=== PATIENT | female | born 1970 | race Caucasian/White ===

== ENCOUNTER 2019-08-19 08:06 | Outpatient (CLI) | payer BC, SELFPAY ==
--- NOTE | 2019-08-19 09:41 | CT_ITS ---
WS: [id number] CT ABDOMEN AND PELVIS WITH CONTRAST HISTORY: ADENOCARCINOMA OF SIGMOID COLON TECHNIQUE: Imaging performed of the abdomen and pelvis with IV contrast. Single phase imaging of the abdomen. Coronal and sagittal reformats are submitted. All CT scans at [facility] use at least one of these dose optimization techniques: automated exposure control; mA and/or kV adjustment per patient size (includes targeted exams where dose is matched to clinical indication); or iterativ e reconstruction. IV CONTRAST: Omnipaque 300; 95 mL IV. Oral contrast: Yes. DLP: 1110.39 mGycm COMPARISON: None available. Lower thorax: Lung bases are clear. Heart is normal size. No hiatal hernia. Liver/biliary system: Mild hepatic steatosis and hepatomegaly. No metastatic lesions or bile duct dil atation. Gallbladder: Numerous stones in the gallbladder. No pericholecystic fluid or gallbladder wall thicken ing. Pancreas: Normal. Spleen: Normal. Adrenal glands: Normal. Right kidney: Normal. Left kidney: Normal. Aorta: Normal. Lymphadenopathy: None. Free fluid: None. GI tract: Appendix is normal. There are numerous diverticula scattered in the descending and sigmoid colon. By history patient has a sigmoid neoplasm. There some mild wall thickening involving the mid t o distal sigmoid but no discrete neoplasm is seen by CT that was described on sigmoid osteopenia. Abdominal wall: Umbilical hernia with no herniated bowel loop. Pelvis: Normal. Bones: Unremarkable. CT/CT abdomen pelvis w con* [id number] IMPRESSION: 1. Descending colon sigmoid diverticulosis. 2. There is mild wall thickening in the mid to distal sigmoid. A discrete iden tifiable mass that was visualized by recent colonoscopy is not apparent by CT. 3. No adenopathy or ascites. 4. Normal adrenal glands. 5. Hepatic steatosis and hepatomegaly. 6. Cholelithiasis.
[2019-08-19] MEDS: iohexol 300 mg/mL 50 mL Btl PO (09:43)
[2019-08-19] MEDS: iohexol 300 mg/mL 100 mL Btl IV (10:04)
== END 2019-08-19 08:07 | disposition home or self-care (01) ==
LOC: RADWPI 08:12
PROVIDERS: PCP Family Medicine; Visit Provider Family Medicine
DX: C18.7 Malignant neoplasm of sigmoid colon (principal); K57.30 Diverticulosis of large intestine without perforation or abscess without bleeding; K76.0 Fatty (change of) liver, not elsewhere classified; R16.0 Hepatomegaly, not elsewhere classified; K80.20 Calculus of gallbladder without cholecystitis without obstruction
CPT/HCPCS: 74177; Q9967

== ENCOUNTER 2020-02-09 08:06 | Outpatient (CLI) | payer BC, SELFPAY ==
--- NOTE | 2020-02-09 08:12 | MM_ITS ---
WS: [id number] BILATERAL DIGITAL SCREENING MAMMOGRAPHY WITH CAD CLINICAL INFORMATION: SCREENING HISTORY: Screening mammogram. No current complaints. COMPARISON: None. TECHNIQUE: Bilateral CC and MLO views. FINDINGS: The breasts are composed of heterogeneous fibroglandular density tissue, which can limit the detectio n of small underlying mass lesions. No suspicious mass, asymmetry, calcifications, or architectural d istortion. No evidence of malignancy. Vascular calcification. A few incidental intramammary lymph nod es. MM/[id number] IMPRESSION: BI-RADS: 2-Benign FOLLOW UP: 1 Year Follow-up Recommend return to annual screening mammography.
== END 2020-02-09 08:07 | disposition home or self-care (01) ==
LOC: RADSHAW 08:10
PROVIDERS: PCP Family Medicine; Visit Provider Family Medicine
DX: Z12.31 Encounter for screening mammogram for malignant neoplasm of breast (principal)
CPT/HCPCS: 77067

== ENCOUNTER 2020-03-30 14:00 | Emergency (ER) | payer BC, SELFPAY ==
[2020-03-30 14:09] VITALS: BP 154/82; PULSE 126; RESP 26; TEMP 37.6; O2SAT 93; BMI 45.4
--- NOTE | 2020-03-30 14:25 | XR_ITS ---
WS: [id number] XR chest 1V portable [id number] REASON FOR EXAM: dyspnea/cough FINDINGS: Patchy airspace and interstitial infiltrative changes in both lower lungs. Normal heart and mediastinum. Moderate degenerative spondylosis in the lower thoracic spine. XR/XR chest 1V portable [id number] IMPRESSION: Bilateral lower lung opacities likely representing acute/subacute pneumonitis.
[2020-03-30 15:21] LABS: D Dimer 1.05 ug/mIFEU (0-0.59)
[2020-03-30 15:22] LABS: Alanine Aminotransferase 42 U/L (0-33); Albumin Level 3.9 g/dL (3.5-5.2); Alkaline Phosphatase 88 IU/L (35-105); Anion Gap 16.1 (5-19); Aspartate Amino Transferase 48 U/L (0-32); Blood Urea Nitrogen 14 mg/dL (6-20); Calcium 8.7 mg/dL (8.5-10.5); Carbon Dioxide 22 mmol/L (22-29); Chloride 97 mmol/L (98-107); Globulin 4.1 g/dL (1.3-4.6); Glomerular Filtration Rate 76.6 mL/min (90-130); Glucose 116 mg/dL (65-115); Osmolality Calculated 273 mOsm/kg (285-295); Potassium 4.1 mmol/L (3.5-5.1); Sodium 131 mmol/L (136-145); Total Bilirubin 0.7 mg/dL (0.15-1.2)
--- NOTE | 2020-03-30 15:29 | W.ED.SOB ---
HPI - SOB/Dyspnea General: Chief Complaint: Shortness of Breath/Dyspnea Stated Complaint: sob Time Seen by Provider: 03/30/20 14:24 History of Present Illness: HPI Narrative: 49-year-old female presents emergency room complaining of shortness of breath. Week ago she was seen as an outpatient and treated for sinusitis. Yesterday she was at her doctor's office and they had a send out PCR Covid test done result is not yet available we called [facility] and they do not have that back yet. She had a little bit of flank pain on the left as well but denies dysuria urgency or frequency she is more shortness of breath short of breath today and has been having some diarrhea as well. MD elicited complaint: shortness of breath and cough Onset (ago): day(s) Context: recent illness Timing: constant Severity: moderate Exacerbating factors: exertion and coughing Relieving factors: rest Associated symptoms: Reports chest congestion and cough; Deny abdominal pain, chest pain, diaphoresis, dizziness, extremity pain, fever(s), hemoptysis, lightheadedness, myalgias, nausea, orthopnea, palpitations, paresthesias, polydipsia, polyuria, rash, sense of impending doom, syncope or vomiting Treatment prior to arrival: none Review of Systems Const: Denies: fever(s) or diaphoresis ENMT: Denies: throat pain, ear or mastoid pain, nasal discharge or nasal congestion Card: Denies: chest pain, palpitations, lightheadedness, syncope or orthopnea Resp: Reports: chest congestion; Denies: hemoptysis GI: Denies: abdominal pain, nausea or vomiting : Denies: flank pain, difficulty voiding, dysuria, urinary frequency or urinary urgency Musc: Denies: extremity pain Skin/Breast: Denies: rash or pruritus Neuro: Denies: dizziness Endo: Denies: polyuria or polydipsia Physical Exam Const: COMMON NORMALS: no acute distress GENERAL APPEARANCE: cooperative and comfortable ORIENTATION/CONSCIOUSNESS: Yes awake, Yes oriented to person, Yes oriented to place and Yes oriented to time HENMT: COMMON NORMALS: normocephalic, atraumatic and hearing grossly normal bilaterally HEAD & SCALP: normocephalic and atraumatic Neck/C-Spine: COMMON NORMALS: no JVD Resp: COMMON NORMALS: normal respiratory effort, No retractions and No use of accessory muscles AUSCULTATION: rales and wheezes Cardio: COMMON NORMALS: no JVD, regular rate, regular rhythm and No murmurs present (Cardio) RATE: regular rate RHYTHM: regular rhythm GI: COMMON NORMALS: Soft to palpation and No hepatosplenomegaly present AUSCULTATION: Yes normoactive bowel sounds PALPATION: Yes Soft to palpation, No Tenderness to palpation present (GI), No Guarding due to palpation present (GI) and Yes No hepatosplenomegaly present Extremity: COMMON NORMALS: normal to inspection, capillary refill normal, no clubbing, cyanosis or edema, no calf tenderness and no pedal edema Neuro: SENSORIUM/ORIENTATION: Yes oriented to person, Yes oriented to place and Yes oriented to time Skin: COMMON NORMALS: no rashes or lesions noted GENERAL SKIN EXAM: no rashes or lesions noted Course Vital Signs: Vital signs: Vital Signs Temperature 99.6 F 03/30/20 14:09 Pulse Rate 126 H 03/30/20 14:09 Respiratory Rate 26 H 03/30/20 14:09 Blood Pressure 154/82 03/30/20 14:09 Pulse Oximetry 91 03/30/20 18:02 MDM - SOB/Dyspnea MDM Narrative: Medical decision making narrative: Reviewing her labs and her imaging most likely she does have Covid she is doing well on supplemental oxygen we will discharge her home with oxygen and oxygen sat monitor follow-up tomorrow pending the results of her PCR testing. This testing was done to [facility] was not repeated here. Lab Data: Labs: Lab Results 03/30/20 03/30/20 03/30/20 Range/Units 14:53 14:53 14:53 WBC Cancelled Corrected WBC Cancelled RBC Cancelled Hgb Cancelled Hct Cancelled MCV Cancelled MCH Cancelled MCHC Cancelled RDW Cancelled Plt Count Cancelled MPV Cancelled Gran % Cancelled Neut % (Auto) Cancelled Lymph % (Auto) Cancelled Wetzel % (Auto) Cancelled Eos % (Auto) Cancelled Baso % (Auto) Cancelled Neut # (Auto) Cancelled Lymph # (Auto) Cancelled Wetzel # (Auto) Cancelled Eos # (Auto) Cancelled Baso # (Auto) Cancelled Absolute Gran (aut o) Cancelled Nucleated RBC % (a uto) Cancelled Nucleated RBCs # Cancelled D-Dimer 1.05 H (0-0.59) ug/mIFE U Sodium 131 L (136-145) mmol/L Potassium 4.1 (3.5-5.1) mmol/L Chloride 97 L (98-107) mmol/L Carbon Dioxide 22 (22-29) mmol/L Anion Gap 16.1 (5-19) BUN 14 (6-20) mg/dL Creatinine 0.8 (0.5-0.9) mg/dL GFR Calculation 76.6 L (90-130) mL/min Glucose 116 H (65-115) mg/dL Calculated Osmolal ity 273 L (285-295) mOsm/k g Calcium 8.7 (8.5-10.5) mg/dL Total Bilirubin 0.7 (0.15-1.2) mg/dL AST 48 H (0-32) U/L ALT 42 H (0-33) U/L Alkaline Phosphata se 88 (35-105) IU/L Total Protein 8.0 (6.6-8.7) g/dL Albumin 3.9 (3.5-5.2) g/dL Globulin 4.1 (1.3-4.6) g/dL 03/30/20 Range/Units 16:51 WBC Cancelled Corrected WBC Cancelled RBC Cancelled Hgb Cancelled Hct Cancelled MCV Cancelled MCH Cancelled MCHC Cancelled RDW Cancelled Plt Count Cancelled MPV Cancelled Gran % Cancelled Neut % (Auto) Cancelled Lymph % (Auto) Cancelled Wetzel % (Auto) Cancelled Eos % (Auto) Cancelled Baso % (Auto) Cancelled Neut # (Auto) Cancelled Lymph # (Auto) Cancelled Wetzel # (Auto) Cancelled Eos # (Auto) Cancelled Baso # (Auto) Cancelled Absolute Gran (aut o) Cancelled Nucleated RBC % (a uto) Cancelled Nucleated RBCs # Cancelled D-Dimer (0-0.59) ug/mIFE U Sodium (136-145) mmol/L Potassium (3.5-5.1) mmol/L Chloride (98-107) mmol/L Carbon Dioxide (22-29) mmol/L Anion Gap (5-19) BUN (6-20) mg/dL Creatinine (0.5-0.9) mg/dL GFR Calculation (90-130) mL/min Glucose (65-115) mg/dL Calculated Osmolal ity (285-295) mOsm/k g Calcium (8.5-10.5) mg/dL Total Bilirubin (0.15-1.2) mg/dL AST (0-32) U/L ALT (0-33) U/L Alkaline Phosphata se (35-105) IU/L Total Protein (6.6-8.7) g/dL Albumin (3.5-5.2) g/dL Globulin (1.3-4.6) g/dL Discharge Plan Discharge Patient Disposition: Home Clinical Impression: Viral pneumonia, Suspected 2019-nCoV infection Condition: Stable Prescriptions: New dexamethasone 6 mg tablet 6 mg PO DAILY Qty: 7 RF: 0 Discontinued methylprednisolone 4 mg tablets,dose pack See Rx Instructions .ROUTE .COMPLEX RF: 0 No Action amoxicillin 500 mg tablet See Rx Instructions .ROUTE .COMPLEX RF: 0 Vitamin C 500 mg Tablet 500 mg PO PRN RF: 0 zinc 50 mg Tablet 50 mg PO PRN RF: 0 Tylenol Extra Strength 500 mg Tablet 500 - 1,000 mg PO PRN RF: 0 Advil 200 mg Tablet 400 mg PO PRN RF: 0 Sudafed PE 10 mg Tablet 10 mg PO PRN RF: 0 Discharge Orders: Discharge ED (Routine); Ordered 03/30/20 Ordered By: Umberto Ken Other Ambulatory Orders: DME: Oxygen (Order) Location: None Selected Ordered By: Umberto Ken Referrals: Matheus Minaya MD [Primary Care Provider] - Coding Level of Care Code ED Oil Expeller Operator for Chg Fwd Exam Comprehensive
--- NOTE | 2020-03-30 15:33 | CT_ITS ---
WS: [id number] CT angio chest PE protcl [id number] REASON FOR EXAM: Dyspnea TECHNIQUE: Coronal and sagittal 2-D and MIP reformations. IV CONTRAST ADMINISTERED: 95 mL of Omnipaque 350 TOTAL EXAM DLP: 1103.[address] scans at [facility] use at least one of these dose optimization techniques: automat ed exposure control; mA and/or kV adjustment per patient size (includes targeted exams where dose is matched to clinical indication); or iterative reconstruction. FINDINGS: No pulmonary emboli. Normal thoracic aorta. Small nodes in the mediastinum and hilar regions, less than 10 mm short axis. Multifocal areas of groundglass density in both lungs involving both the central and peripheral porti ons of the lungs. In the periphery of the lungs the areas of groundglass density demonstrated tendenc y to coalesce into a thick linear regions paralleling the pleural surface. No pleural effusion. CT/CT angio chest PE protcl [id number] IMPRESSION: No pulmonary emboli. Multifocal infiltrative process as described above. The findings are not diagno stic but very suggestive of Covid pneumonitis.
[2020-03-30] MEDS: iohexol 350 mg/mL 100 mL Btl IV (16:10)
[2020-03-30] MEDS: ketorolac 60 mg/2 mL INJ IM (16:59)
[2020-03-30] MEDS: dexamethasone 4 mg/mL INJ 6 MG IVP (17:16)
[2020-03-30 18:02] VITALS: O2SAT 87; O2SAT 91; O2SAT 94
--- NOTE | 2020-03-30 18:05 | PC.NURSE ---
patient qualified for home O2
[2020-03-30 18:26] LABS: Basophils % 0.1 %; Eosinophils % 0.1 %; Hematocrit 41.1 % (37.0-47.0); Hemoglobin 13.1 g/dL (11.5-15.3); Lymphocytes % 19.8 %; Mean Corpuscular HGB Conc 31.9 g/dL (30.0-36.0); Mean Corpuscular Hemoglobin 27.1 pg (28.0-34.0); Mean Corpuscular Volume 85.1 fL (81-99); Mean Platelet Volume 10.6 fL (7.4-10.4); Monocytes # 0.6 10^3/uL (0.2-0.9); Monocytes % 6.2 %; Neutrophils # 7.45 10^3/uL (1.8-7.7); Neutrophils % 73.5 %; Nucleated Red Blood Cells % 0 %; Platelet Count 273 10^3/cmm (130-400); Red Blood Count 4.83 10^6/uL (4.1-5.3); Red Cell Distribution Width 13.9 % (12.1-15.1); White Blood Count 10.1 10^3/uL (4.0-10.0)
[2020-03-30 18:53] VITALS: BP 108/72; PULSE 118; RESP 20; O2SAT 95
[2020-03-30 19:17] VITALS: BP 137/86; PULSE 104; RESP 18; O2SAT 94
[2020-03-30 19:43] VITALS: BP 107/72; PULSE 95; RESP 18; O2SAT 95
--- NOTE | 2020-03-31 10:49 | DCPLANNER ---
Addendum entered by Mercy Huerta 04/13/20 12:08: Patient did attend appointment at [facility]. Original Note: retail advertising sales manager had message to schedule a follow up appointment for patient with primary care physician, Dr. Minaya at [facility]. retail advertising sales manager called [facility], a follow up appointment was scheduled for Sunday, March 31, 2020 at 3:45 with Brandee Alfredo at [facility]. retail advertising sales manager called patient and gave her the appointment information.
== END 2020-03-30 19:45 | disposition home or self-care (01) ==
PROVIDERS: Emergency Provider Family Medicine; PCP Family Medicine
DX: J12.9 Viral pneumonia, unspecified (principal); Z20.828 Contact with and (suspected) exposure to other viral communicable diseases
CPT/HCPCS: 12345; 36415; 71045; 71275; 80053; 85025; 85378; 96372; 96374; 96375; 99282; 99284; J1100; J1885; Q9967

== ENCOUNTER 2021-02-18 13:56 | Outpatient (CLI) | payer BC, SELFPAY ==
--- NOTE | 2021-02-18 13:59 | MM_ITS ---
WS: [id number] BILATERAL SCREENING DIGITAL MAMMOGRAM WITH CAD HISTORY: SCREENING COMPARISON: 02/09/2020 Bilateral CC and MLO views submitted. Computer aided detection analyzed. Breast composition: There are scattered areas of fibroglandular density. No suspicious masses, microc alcifications or architectural distortion. Multiple bilateral small nodules and lymph nodes. No suspi cious mass or increase in size of the nodules. MM/[place] [id number] IMPRESSION: BI-RADS: 2-Benign FOLLOW UP: 1 Year Follow-up
== END 2021-02-18 13:57 | disposition home or self-care (01) ==
LOC: RADSHAW 13:58
PROVIDERS: PCP Family Medicine; Visit Provider Family Medicine
DX: Z12.31 Encounter for screening mammogram for malignant neoplasm of breast (principal)
CPT/HCPCS: 77067

== ENCOUNTER 2021-03-07 12:00 | Outpatient (CLI) | payer BC, SELFPAY | END 2021-03-07 12:01 | disposition home or self-care (01) | LOC: SLEEP 03-08 13:32 | PROVIDERS: PCP Family Medicine; Visit Provider Family Medicine | DX: G47.10 Hypersomnia, unspecified (principal) | CPT/HCPCS: G0399 ==

== ENCOUNTER 2021-04-19 14:34 | Outpatient (CLI) | payer BC, SELFPAY ==
[2021-04-19 16:45] LABS: Basophils # 0.1 10^3/uL (0.0-0.1); Basophils % 0.6 %; Eosinophils # 0.5 10^3/uL (0.0-0.8); Hematocrit 41.9 % (37.0-47.0); Hemoglobin 13.1 g/dL (11.5-15.3); Lymphocytes # 3.3 10^3/uL (0.8-4.8); Lymphocytes % 25.3 %; Mean Corpuscular HGB Conc 31.3 g/dL (30.0-36.0); Mean Corpuscular Volume 86.4 fl (81-99); Monocytes # 0.7 10^3/uL (0.2-0.9); Monocytes % 5.7 %; Neutrophils # 8.24 10^3/uL (1.8-7.7); Nucleated Red Blood Cells % 0 %; Platelet Count 352 10^3/cmm (130-400); Red Blood Count 4.85 10^6/uL (4.1-5.3); Red Cell Distribution Width 13.9 % (12.1-15.1); White Blood Count 12.9 10^3/uL (4.0-10.0)
[2021-04-19 17:07] LABS: Bilirubin Urine Neg (Negative); Blood Urine Neg (Negative); Glucose Urine UA Norm (Normal); Ketones Urine Negative (Negative); Leukocyte Esterase Urine Negative (Negative); Nitrate Urine Negative (Negative); Protein Urine Neg (Negative); Specific Gravity, Urine 1.005 (1.005-1.030); Urine Appearance Clear (CLEAR); Urine Color Straw (Yellow); Urobilinogen Urine Norm (Negative); pH Urine 7 (5-7)
[2021-04-19 17:39] LABS: Alanine Aminotransferase 17 U/L (0-33); Albumin Level 3.9 g/dL (3.5-5.2); Alkaline Phosphatase 96 IU/L (35-105); Aspartate Amino Transferase 17 U/L (0-32); Blood Urea Nitrogen 9 mg/dL (6-20); Carbon Dioxide 24 mmol/L (22-29); Chloride 101 mmol/L (98-107); Globulin 3.7 g/dL (1.3-4.6); Glomerular Filtration Rate 106.3 mL/min (90-130); Glucose 86 mg/dL (65-115); Osmolality Calculated 286 mOsm/kg (285-295); Sodium 139 mmol/L (136-145); Total Bilirubin 0.3 mg/dL (0.15-1.2); Total Protein 7.6 g/dL (6.6-8.7)
[2021-04-19 18:44] LABS: Anion Gap 17.9 (5-19); Potassium 3.9 mmol/L (3.5-5.1)
[2021-04-19 20:09] LABS: Carcinoembryonic Antigen 1.9 ng/mL (0.0-4.7)
--- NOTE | 2021-04-20 15:57 | ONC CON_ITS ---
Dr. Brian New Patient Note Patient: Yissel Bass Unit #: [id number]: 1970 Dicatated By: Sriram Brian M.D.Date of Visit: Apr 19, 2021 Onc MED New Patient/Consult Referring Physician: No 'Referrals from' exist for this patient. History of Present Illness: Ms. Yissel bass, is a 50-year-old female with history of descending colon cancer underwent surgical resection on October 07, [address] 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 Villanueva syndrome. Patient was followed by Dr. aRoul Templeton, medical oncologist at [facility], in [facility]. As per patient, at the time of colon resection, she also underwent bilateral oophorectomy/hysterectomy as a prophylactic as diagnosed with Villanueva syndrome and history of cervical cancer in her sister. His follow-up CT scan was done in September 2020 at that time it shows stable appearance to CT scan of chest abdomen pelvis, no evidence of new metastatic lesion or mass or lymphadenopathy. As per patient she was advised to get CT scans every years x3. As per patient she had a colonoscopy done last year but never had EGD done Patient denies smoking alcohol use, denies any melena or hematochezia, denies any hemoptysis or hematemesis, denies any jaundice denies any abdominal pain, denies any diarrhea or constipation denies any weight loss Patient was recently diagnosed with sleep apnea, and using CPAP. Complaining of indigestion heartburn as per patient she is trying to lose weight and consuming so-called loaded Tea which is a caffeinated water with minerals and vitamins. And usually Rolaids helps. No hemoptysis or hematemesis. Past Medical History: Ms. Bass's medical history consists of anxiety, cervicalgia, diverticulosis, and Covid 19 in 2019. Past Surgical History: Ms. Piress surgical/procedural history consists of hysterectomy, colon resection in 2019, and colonoscopy in 2019. Medications: Albuterol Sulfate 2 Puff(s) (of 108 (90 base) mcg/act) Aerosol Powder, Breath Activated Inhalation q 4 hours PRN, Cetirizine HCl 1 Tablet (of 10 mg) Oral b.i.d., Flonase 1 Katy(s) (of 50 mcg/act) Suspension Nasal daily Allergies: No Known Allergies. Social History: Ms. Bass is . Ms. Bass has never smoked. She has no history of drinking. Family History: There is no documented family history. Review Of Symptoms: Review of Systems is not available for this patient. Vital Signs: Performed on Apr 19, 2021 15:38: 0, 0, 49.39 (HIGH), 2.40 sq.m, 66.0 in, 98 %, 102 /min (HIGH), 17 /min, 163/103 mm(hg) (HIGH), 97.9 F (LOW), and 306.0 lbs (HIGH). Performance Status: 0 - Fully active, able to carry on all predisease activities without restrictions. (ECOG) Physical Examination: ENMT - No mouth sores, no thrush, no jaundice, Respiratory - Lungs are clear to auscultation, Cardiovascular - Regular rate and rhythm of heart, Abdomen - Soft, bowel sounds present, Extremities - No visible edema. Lab/Imaging: Most recent lab results are not available for this patient. 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 Villanueva syndrome, now being followed Sleep apnea, on CPAP Status post prophylactic oophorectomy/hysterectomy done on October 07, 2019 Plan: Discussed with patient regarding her disease status and further follow-up option, patient was followed by Dr. Templeton, medical oncologist in [place], patient wants to transfer her care to [place]. So we will consider CBC CMP and CEA level and urinalysis to rule out microscopic hematuria. And As far as indigestion is concerned, could be due to spicy food or hyperacidity, as patient has history of Villanueva syndrome, there is a concern about increased risk of upper GI malignancy, we will refer her to Dr. Calixto for EGD, patient was advised to avoid spicy food. She will return to clinic in 6 months with CBC CMP and CEA and urinalysis and follow-up yearly CT scan of chest abdomen pelvis. Signed By: Sriram Brian M.D. <<Signature on File>>
== END 2021-04-19 14:35 | disposition home or self-care (01) ==
PROVIDERS: PCP Family Medicine; Visit Provider Internal Medicine Hematology & Oncology
DX: C18.6 Malignant neoplasm of descending colon (principal); F41.9 Anxiety disorder, unspecified; K57.90 Diverticulosis of intestine, part unspecified, without perforation or abscess without bleeding; M54.2 Cervicalgia; Z79.899 Other long term (current) drug therapy; Z86.16 Personal history of COVID-19
CPT/HCPCS: 36415; 80053; 81001; 82378; 85025; 99204

== ENCOUNTER → 2021-08-18 10:55 | Outpatient (BNVA) | payer BC, SELFPAY | PROVIDERS: PCP Family Medicine; Visit Provider Internal Medicine | DX: M25.50 Pain in unspecified joint (principal); R53.83 Other fatigue; R79.82 Elevated C-reactive protein (CRP) | CPT/HCPCS: 36415; 73120; 73560; 82550; 82784; 83516; 84443; 85651; 86140; 86160; 86162; 86200; 86235; 86255; 86376 ==

== ENCOUNTER 2021-10-06 17:05 | Outpatient (CLI) | payer BC, SELFPAY ==
[2021-10-06 18:21] LABS: Basophils # 0.1 10^3/uL (0.0-0.1); Basophils % 0.5 %; Eosinophils # 0.6 10^3/uL (0.0-0.8); Eosinophils % 6.3 %; Hemoglobin 12.6 g/dL (11.5-15.3); Lymphocytes # 2.6 10^3/uL (0.8-4.8); Lymphocytes % 26.3 %; Mean Corpuscular HGB Conc 32.3 g/dL (30.0-36.0); Mean Corpuscular Volume 83.7 fl (81-99); Mean Platelet Volume 10.9 fL (7.4-10.4); Monocytes # 0.6 10^3/uL (0.2-0.9); Monocytes % 5.7 %; Neutrophils # 6.09 10^3/uL (1.8-7.7); Neutrophils % 60.8 %; Nucleated Red Blood Cells % 0 %; Platelet Count 294 10^3/cmm (130-400); Red Blood Count 4.66 10^6/uL (4.1-5.3); Red Cell Distribution Width 14.4 % (12.1-15.1)
[2021-10-06 19:21] LABS: Alanine Aminotransferase 21 U/L (0-33); Albumin Level 4.3 g/dL (3.5-5.2); Alkaline Phosphatase 70 IU/L (35-105); Anion Gap 18.7 (5-19); Aspartate Amino Transferase 15 U/L (0-32); Blood Urea Nitrogen 9 mg/dL (6-20); C Reactive Protein 23.8 mg/L (0.0-4.9); Calcium 9.6 mg/dL (8.5-10.5); Carbon Dioxide 22 mmol/L (22-29); Chloride 103 mmol/L (98-107); Globulin 3.3 g/dL (1.3-4.6); Glomerular Filtration Rate 105.8 mL/min (90-130); Glucose 93 mg/dL (65-115); Osmolality Calculated 288 mOsm/kg (285-295); Potassium 3.7 mmol/L (3.5-5.1); Sodium 140 mmol/L (136-145); Total Bilirubin 0.5 mg/dL (0.15-1.2); Total Protein 7.6 g/dL (6.6-8.7)
[2021-10-06 21:29] LABS: Hepatitis B Core AB, Total Non-Reactive (Nonreactive); Hepatitis B Surface AB 6.3 (11.5-1000); Hepatitis B Surface Antigen Non-Reactive (Nonreactive); Hepatitis C Virus Antibody Non-Reactive (Nonreactive)
[2021-10-11 13:22] LABS: Quantiferon Mitogen >10.00 IU/mL; Quantiferon Nil 0.02 IU/mL; Quantiferon Plus TB1 0.01 IU/mL; Quantiferon Plus TB2 0.01 IU/mL; Quantiferon TB Gold NEGATIVE (NEGATIVE)
== END 2021-10-06 17:06 | disposition home or self-care (01) ==
LOC: LAB 17:07
PROVIDERS: PCP Family Medicine; Visit Provider Internal Medicine
DX: R79.82 Elevated C-reactive protein (CRP) (principal)
CPT/HCPCS: 80053; 85025; 86140; 86480; 86705; 86706; 86803; 87340

== ENCOUNTER 2021-12-21 16:12 | Outpatient (CLI) | payer BC, SELFPAY ==
[2021-12-21 16:47] LABS: Basophils # 0.1 10^3/uL (0.0-0.1); Basophils % 0.6 %; Eosinophils # 0.5 10^3/uL (0.0-0.8); Eosinophils % 5.2 %; Hematocrit 40.5 % (37.0-47.0); Hemoglobin 12.9 g/dL (11.5-15.3); Lymphocytes # 2.8 10^3/uL (0.8-4.8); Lymphocytes % 27.6 %; Mean Corpuscular HGB Conc 31.9 g/dL (30.0-36.0); Mean Corpuscular Hemoglobin 27.4 pg (28.0-34.0); Mean Corpuscular Volume 86.2 fl (81-99); Mean Platelet Volume 10.1 fL (7.4-10.4); Monocytes # 0.8 10^3/uL (0.2-0.9); Monocytes % 7.4 %; Neutrophils # 6.02 10^3/uL (1.8-7.7); Neutrophils % 58.8 %; Nucleated Red Blood Cells % 0 %; Platelet Count 263 10^3/cmm (130-400); Red Cell Distribution Width 14.1 % (12.1-15.1); White Blood Count 10.2 10^3/uL (4.0-10.0)
[2021-12-21 16:56] LABS: Bilirubin Urine Neg (Negative); Blood Urine Neg (Negative); Glucose Urine UA Norm (Normal); Ketones Urine Negative (Negative); Leukocyte Esterase Urine Negative (Negative); Nitrate Urine Negative (Negative); Protein Urine Neg (Negative); Specific Gravity, Urine 1.005 (1.005-1.030); Urine Appearance Clear (CLEAR); Urine Color Yellow (Yellow); Urobilinogen Urine Norm (Negative); pH Urine 7 (5-7)
[2021-12-21 16:58] LABS: Add Urine Culture? No; Bacteria Urine TRACE /hpf; RBC Urine 0-4 /hpf (0-2); Squamous Epithelial Cell Urine 0-4 /hpf (0-5); WBC Urine 0-4 /hpf (0-5)
[2021-12-21 17:31] LABS: Carcinoembryonic Antigen 1.6 ng/mL (0.0-4.7)
[2021-12-21 17:42] LABS: Albumin Level 3.9 g/dL (3.5-5.2); Alkaline Phosphatase 74 U/L (35-105); Blood Urea Nitrogen 10 mg/dL (6-20); Calcium 9.1 mg/dL (8.5-10.5); Carbon Dioxide 19 mmol/L (22-29); Chloride 103 mmol/L (98-107); Globulin 2.8 g/dL (1.3-4.6); Glomerular Filtration Rate 105.8 mL/min (90-130); Glucose 89 mg/dL (65-115); Osmolality Calculated 281 mOsm/kg (285-295); Sodium 136 mmol/L (136-145); Total Bilirubin 0.4 mg/dL (0.15-1.2); Total Protein 6.7 g/dL (6.6-8.7)
[2021-12-21 18:07] LABS: Alanine Aminotransferase 16 U/L (0-33); Anion Gap 18.8 (5-19); Aspartate Amino Transferase 27 U/L (0-32); Potassium 4.8 mmol/L (3.5-5.1)
== END 2021-12-21 16:13 | disposition home or self-care (01) ==
LOC: LAB 16:14
PROVIDERS: Nurse Practitioner; PCP Family Medicine; Visit Provider Internal Medicine Hematology & Oncology
DX: C18.6 Malignant neoplasm of descending colon (principal); M25.50 Pain in unspecified joint; R79.82 Elevated C-reactive protein (CRP)
CPT/HCPCS: 36415; 80053; 81001; 82378; 85025

== ENCOUNTER 2022-01-17 10:04 | Oncology outpatient (recurring) (ONCR) | payer BC, SELFPAY ==
[2022-01-17 10:45] LABS: Basophils # 0.1 10^3/uL (0.0-0.1); Basophils % 0.6 %; Eosinophils # 0.5 10^3/uL (0.0-0.8); Eosinophils % 5.3 %; Hematocrit 40.2 % (37.0-47.0); Hemoglobin 12.6 g/dL (11.5-15.3); Lymphocytes # 2.5 10^3/uL (0.8-4.8); Lymphocytes % 25.3 %; Mean Corpuscular HGB Conc 31.3 g/dL (30.0-36.0); Mean Corpuscular Hemoglobin 26.8 pg (28.0-34.0); Mean Corpuscular Volume 85.5 fl (81-99); Monocytes # 0.7 10^3/uL (0.2-0.9); Monocytes % 7.1 %; Neutrophils # 6.11 10^3/uL (1.8-7.7); Neutrophils % 61.1 %; Nucleated Red Blood Cells % 0 %; Platelet Count 309 10^3/cmm (130-400); Red Cell Distribution Width 13.9 % (12.1-15.1)
[2022-01-17 10:49] LABS: Bilirubin Urine Neg (Negative); Blood Urine Neg (Negative); Glucose Urine UA Norm (Normal); Ketones Urine Negative (Negative); Nitrate Urine Negative (Negative); Protein Urine Neg (Negative); Specific Gravity, Urine 1.005 (1.005-1.030); Urine Appearance Clear (CLEAR); Urine Color Yellow (Yellow); Urobilinogen Urine Norm (Negative); pH Urine 6.5 (5-7)
[2022-01-17 10:50] LABS: Leukocyte Esterase Urine Negative (Negative)
[2022-01-17 10:56] LABS: Add Urine Culture? No
[2022-01-17 11:09] LABS: C Reactive Protein 21.6 mg/L (0.0-4.9)
[2022-01-17 11:41] LABS: Alanine Aminotransferase 15 U/L (0-33); Alkaline Phosphatase 81 U/L (35-105); Blood Urea Nitrogen 9 mg/dL (6-20); Calcium 9.1 mg/dL (8.5-10.5); Carbon Dioxide 23 mmol/L (22-29); Chloride 104 mmol/L (98-107); Globulin 3.2 g/dL (1.3-4.6); Glomerular Filtration Rate 105.8 mL/min (90-130); Glucose 87 mg/dL (65-115); Osmolality Calculated 286 mOsm/kg (285-295); Sodium 139 mmol/L (136-145); Total Bilirubin 0.4 mg/dL (0.15-1.2); Total Protein 7.2 g/dL (6.6-8.7)
[2022-01-17 11:51] LABS: Anion Gap 16.2 (5-19); Aspartate Amino Transferase 15 U/L (0-32); Potassium 4.2 mmol/L (3.5-5.1)
== END 2022-02-13 23:59 | disposition home or self-care (01) ==
PROVIDERS: PCP Family Medicine; Visit Provider Internal Medicine Hematology & Oncology
DX: C18.6 Malignant neoplasm of descending colon (principal)
CPT/HCPCS: 80053; 81001; 82378; 85025; 86140

== ENCOUNTER 2022-02-20 10:38 | Outpatient (CLI) | payer BC, SELFPAY ==
--- NOTE | 2022-02-20 10:45 | MM_ITS ---
WS: [id number] Bilateral screening 3D tomosynthesis digital mammogram, 02/20/2022 Clinical Data: SCREENING Comparison: 02/18/2021, 02/09/2020. Findings: The breast parenchymal pattern shows glandular tissue. No spiculated masses or clustered calcificatio ns are seen. There are no secondary signs of carcinoma. MM/[place] [id number] Impression: 1. Negative bilateral mammogram unchanged. 2. Recommend annual screening mammograms. BIRADS: 1-Negative FOLLOW UP: 1 Year Follow-up The CAD lap checker was used.
== END 2022-02-20 10:39 | disposition home or self-care (01) ==
PROVIDERS: PCP Family Medicine; Visit Provider Family Medicine
DX: Z12.31 Encounter for screening mammogram for malignant neoplasm of breast (principal)
CPT/HCPCS: 77063; 77067

== ENCOUNTER 2022-07-24 12:46 | Oncology outpatient (recurring) (ONCR) | payer BC, SELFPAY ==
[2022-07-24 13:15] LABS: Basophils # 0.1 10^3/uL (0.0-0.1); Basophils % 0.6 %; Eosinophils # 0.7 10^3/uL (0.0-0.8); Hematocrit 40.7 % (37.0-47.0); Hemoglobin 12.9 g/dL (11.5-15.3); Lymphocytes # 3.1 10^3/uL (0.8-4.8); Lymphocytes % 27.7 %; Mean Corpuscular HGB Conc 31.7 g/dL (30.0-36.0); Mean Corpuscular Hemoglobin 27.9 pg (28.0-34.0); Mean Corpuscular Volume 88.1 fl (81-99); Mean Platelet Volume 9.7 fL (7.4-10.4); Monocytes # 0.8 10^3/uL (0.2-0.9); Monocytes % 6.8 %; Neutrophils # 6.62 10^3/uL (1.8-7.7); Neutrophils % 58.5 %; Nucleated Red Blood Cells % 0 %; Platelet Count 333 10^3/cmm (130-400); Red Blood Count 4.62 10^6/uL (4.1-5.3); Red Cell Distribution Width 14.2 % (12.1-15.1); White Blood Count 11.3 10^3/uL (4.0-10.0)
[2022-07-24 13:39] LABS: Carcinoembryonic Antigen 2.4 ng/mL (0.0-4.7)
[2022-07-24 13:50] LABS: Alanine Aminotransferase 18 U/L (0-33); Albumin Level 3.9 g/dL (3.5-5.2); Alkaline Phosphatase 73 U/L (35-105); Anion Gap 17.5 (5-19); Aspartate Amino Transferase 17 U/L (0-32); Blood Urea Nitrogen 11 mg/dL (6-20); Carbon Dioxide 23 mmol/L (22-29); Chloride 100 mmol/L (98-107); Globulin 3.7 g/dL (1.3-4.6); Glomerular Filtration Rate 105.4 mL/min (90-130); Glucose 76 mg/dL (65-115); Osmolality Calculated 282 mOsm/kg (285-295); Potassium 3.5 mmol/L (3.5-5.1); Sodium 137 mmol/L (136-145); Total Bilirubin 0.4 mg/dL (0.15-1.2); Total Protein 7.6 g/dL (6.6-8.7)
== END 2022-08-13 23:59 | disposition home or self-care (01) ==
PROVIDERS: PCP Family Medicine; Visit Provider Internal Medicine Hematology & Oncology
DX: C18.6 Malignant neoplasm of descending colon (principal)
CPT/HCPCS: 36415; 80053; 82378; 85025

== ENCOUNTER 2022-08-28 17:16 | Outpatient (CLI) | payer BC, SELFPAY ==
[2022-08-28 18:29] LABS: Basophils # 0.1 10^3/uL (0.0-0.1); Basophils % 0.7 %; Eosinophils # 0.6 10^3/uL (0.0-0.8); Eosinophils % 4.7 %; Hematocrit 37.6 % (37.0-47.0); Hemoglobin 11.9 g/dL (11.5-15.3); Lymphocytes # 3.2 10^3/uL (0.8-4.8); Lymphocytes % 26.7 %; Mean Corpuscular HGB Conc 31.6 g/dL (30.0-36.0); Mean Corpuscular Hemoglobin 27.1 pg (28.0-34.0); Mean Corpuscular Volume 85.6 fl (81-99); Mean Platelet Volume 10.2 fL (7.4-10.4); Monocytes # 1.1 10^3/uL (0.2-0.9); Monocytes % 8.7 %; Neutrophils # 7.05 10^3/uL (1.8-7.7); Neutrophils % 58.8 %; Nucleated Red Blood Cells % 0 %; Platelet Count 324 10^3/cmm (130-400); Red Blood Count 4.39 10^6/uL (4.1-5.3); Red Cell Distribution Width 13.8 % (12.1-15.1)
[2022-08-28 18:36] LABS: Erythrocyte Sedimentation Rate 39 mm/hr (0-15)
[2022-08-28 18:46] LABS: Alanine Aminotransferase 14 U/L (0-33); Alkaline Phosphatase 73 U/L (35-105); Anion Gap 15.8 (5-19); Aspartate Amino Transferase 12 U/L (0-32); Blood Urea Nitrogen 11 mg/dL (6-20); C Reactive Protein 19.6 mg/L (0.0-4.9); Calcium 8.7 mg/dL (8.5-10.5); Carbon Dioxide 24 mmol/L (22-29); Chloride 101 mmol/L (98-107); Glomerular Filtration Rate 105.4 mL/min (90-130); Glucose 77 mg/dL (65-115); Osmolality Calculated 282 mOsm/kg (285-295); Potassium 3.8 mmol/L (3.5-5.1); Sodium 137 mmol/L (136-145); Total Bilirubin 0.3 mg/dL (0.15-1.2)
== END 2022-08-28 17:17 | disposition home or self-care (01) ==
LOC: LAB 17:19
PROVIDERS: PCP Family Medicine; Visit Provider Internal Medicine
DX: M25.50 Pain in unspecified joint (principal)
CPT/HCPCS: 36415; 80053; 85025; 85651; 86140

== ENCOUNTER 2023-01-15 09:20 | Outpatient (CLI) | payer BC, SELFPAY ==
[2023-01-15] MEDS: iohexol 350 mg/mL 500 mL Btl (per mL) PO (10:40)
--- NOTE | 2023-01-15 11:00 | CT_ITS ---
WS: [id number] CT ABDOMEN PELVIS TECHNIQUE: Contrast-enhanced CT of the abdomen and pelvis with coronal and sagittal reformatted image s. CLINICAL INFORMATION: follow up COMPARISON: CT 08/19/2019 DLP: 1139.[address] scans at [facility] use at least one of these dose optimization techniques: automated e xposure control; mA and/or kV adjustment per patient size (includes targeted exams where dose is matc hed to clinical indication); or iterative reconstruction. FINDINGS: Prior hysterectomy. Prior postoperative changes of partial sigmoid resection for neoplasm. No visuali zed recurrent mass or lesion. Sigmoid diverticulosis. No adenopathy in the abdomen or pelvis. No evid ence of small or large bowel obstruction. Tiny fat-containing umbilical hernia. Diffuse fatty filtrat ion of the liver. Hepatomegaly. Cholelithiasis. Normal GE junction. Normal spleen. Lung bases are wel l aerated. Adrenal glands are normal. Normal renal parenchymal enhancement. No hydronephrosis. Normal caliber abdominal aorta. IMPRESSION: 1. Prior postoperative changes partial sigmoid resection for neoplasm. No evidence of recurrent mass or lesion. 2. Prior hysterectomy. 3. No lymphadenopathy in the abdomen or pelvis. 4. Hepatomegaly with fatty infiltration. 5. Cholelithiasis.
[2023-01-15] MEDS: iohexol 350 mg/mL 500 mL Btl (per mL) IV (11:30)
== END 2023-01-15 09:21 | disposition home or self-care (01) ==
LOC: RAD 09:25
PROVIDERS: PCP Family Medicine; Visit Provider Internal Medicine Hematology & Oncology
DX: C18.6 Malignant neoplasm of descending colon (principal); Z90.49 Acquired absence of other specified parts of digestive tract; Z90.710 Acquired absence of both cervix and uterus; K76.0 Fatty (change of) liver, not elsewhere classified; K80.20 Calculus of gallbladder without cholecystitis without obstruction
CPT/HCPCS: 74177; Q9967

== ENCOUNTER 2023-01-23 11:20 | Oncology outpatient (recurring) (ONCR) | payer BC, SELFPAY ==
[2023-01-23 12:34] LABS: Basophils # 0.1 10^3/uL (0.0-0.1); Basophils % 0.7 %; Eosinophils # 0.5 10^3/uL (0.0-0.8); Eosinophils % 5.5 %; Lymphocytes # 2.5 10^3/uL (0.8-4.8); Lymphocytes % 27.2 %; Mean Corpuscular HGB Conc 31.5 g/dL (30-55); Mean Corpuscular Hemoglobin 27.6 pg (27-33); Mean Corpuscular Volume 87.5 fl (85-98); Mean Platelet Volume 9.6 fL (7.4-10.4); Monocytes # 0.6 10^3/uL (0.2-0.9); Monocytes % 6.8 %; Neutrophils % 59.1 %; Nucleated Red Blood Cells % 0 %; Platelet Count 301 10^3/cmm (157-399); Red Blood Count 4.57 10^6/uL (3.85-5.65); Red Cell Distribution Width 13.9 % (12.1-15.1); White Blood Count 9.12 10^3/uL (3.29-11.43)
[2023-01-23 13:23] LABS: Carcinoembryonic Antigen 2.5 ng/mL (0.0-4.7)
[2023-01-23 13:36] LABS: Alanine Aminotransferase 12 U/L (0-33); Alkaline Phosphatase 76 U/L (35-105); Anion Gap 14.8 (5-19); Aspartate Amino Transferase 12 U/L (0-32); Blood Urea Nitrogen 10 mg/dL (6-20); Calcium 8.9 mg/dL (8.5-10.5); Carbon Dioxide 23 mmol/L (22-29); Chloride 105 mmol/L (98-107); Globulin 3.4 g/dL (1.3-4.6); Glomerular Filtration Rate 88.2 mL/min (90-130); Glucose 104 mg/dL (65-115); Osmolality Calculated 287 mOsm/kg (285-295); Potassium 3.8 mmol/L (3.5-5.1); Sodium 139 mmol/L (136-145); Total Bilirubin 0.5 mg/dL (0.15-1.2); Total Protein 7.4 g/dL (6.6-8.7)
== END 2023-02-13 23:59 | disposition home or self-care (01) ==
PROVIDERS: PCP Family Medicine; Visit Provider Internal Medicine Medical Oncology
DX: C18.6 Malignant neoplasm of descending colon (principal); R79.82 Elevated C-reactive protein (CRP); Z79.899 Other long term (current) drug therapy
CPT/HCPCS: 36415; 80053; 82378; 85025

== ENCOUNTER → 2024-01-16 10:07 | Outpatient (BNVA) | payer BC, SELFPAY | PROVIDERS: PCP Family Medicine; Visit Provider Internal Medicine Rheumatology | DX: M25.50 Pain in unspecified joint (principal); R79.82 Elevated C-reactive protein (CRP); C18.6 Malignant neoplasm of descending colon | CPT/HCPCS: 36415; 80053; 82306; 82378; 85025; 86140 ==